=== PATIENT | male | born 1935 | race Caucasian/White ===

== ENCOUNTER 2021-07-23 15:56 | Emergency (ER) | payer MEDICARE, OTHER ==
[~2021-07-23] VITALS: Ht 170.2 cm; Wt 90.9 kg
[~2021-07-23 15:56] MED LIST: METF-658 PO; TAMS0.4C97 PO
--- NOTE | 2021-07-23 18:19 | PHYS DOC ---
Past Medical History Past Medical History: CVA, Diabetes-Type II, Other Additional Past Medical Histor: URINARY RETENTION Past Surgical History: Cholecystectomy Smoking Status: Former Smoker Alcohol Use: None Drug Use: None General Adult EDM: Chief Complaint: PENIS PROBLEM HPI: HPI: Patient is a 86 year old male with history of of DM, CVA, urinary retention who presents with "bleeding down there." Patient states that he sat down in a chair approximately 3 hours ago. He felt a "tear" near his genitals. He noticed bleeding on the chair and continued bleeding in his pants. He is unsure where the bleeding is coming from, because he cannot see it. Denies any direct trauma to the area, did not sit on any sharp objects or anything unusual. Denies having a similar issue in the past. He is supposed to be taking Plavix for his CVA, but has been noncompliant with Plavix for the past week. Review of Systems: Review of Systems: Constitutional: Denies fever or chills. [] Eyes: Denies change in visual acuity. [] HENT: Denies nasal congestion or sore throat. [] Respiratory: Denies cough or shortness of breath. [] Cardiovascular: Denies chest pain or edema. [] GI: Denies abdominal pain, nausea, vomiting, bloody stools or diarrhea. [] : bleeding in genital area, genital itching Musculoskeletal: Denies back pain or joint pain. [] Integument: Denies rash. [] Neurologic: Denies headache, focal weakness or sensory changes. [] Endocrine: Denies polyuria or polydipsia. [] Lymphatic: Denies swollen glands. [] Psychiatric: Denies depression or anxiety. [] Heart Score: C/O Chest Pain: No Allergies: Allergies: Allergies Coded Allergies Type Severity Reaction Last Updated Verified No Known Drug Allergies 03/21/16 No Physical Exam: PE: Constitutional: Well developed, well nourished, no acute distress, non-toxic appearance. [] Cardiovascular:Normal rate Lungs & Thorax: Normal work of breathing Abdomen: soft, non-tender : erythema in the groin bilateraly extending to the scrotum and shaft of the penis. Thick yellow, sebaceous secretions. At the base of the right side of the penis he has small skin tear/irritation, not bleeding, well approximated. The tear area is tender but the remaining genital exam is non-tender. Skin: See above, warm, well perfused extremities. Back: No tenderness, no CVA tenderness. [] Extremities: No tenderness, no edema. [] Neurologic: Alert and oriented X 3, normal motor function, normal sensory function, no focal deficits noted. [] Psychologic: Affect normal, judgement normal, mood normal. [] Current Patient Data: Vital Signs: Vital Signs Date Time Temp Pulse Resp B/P (MAP) Pulse Ox O2 Delivery O2 Flow Rate FiO2 07/23/21 16:13 98.6 85 18 172/84 (113) 96 Room Air 98.6 EKG: EKG: [] Radiology/Procedures: Radiology/Procedures: [] Course & Med Decision Making: Course & Med Decision Making Pertinent Labs and Imaging studies reviewed. (See chart for details) 86-year-old male presents with bleeding in his genital area. Exam reveals tinea cruris and balanitis. No suspicion for Roberto's gangrene/n ecrotizing soft tissue infection or bacterial superinfection. The small skin tear/area of irritation is now hemostatic and does not require repair. We will treat with fluconazole 150 mg p.o. once, clotrimazole/betamethasone cream BID for 10 days. Asked him to follow-up with his PCP 1-2 weeks to ensure that his symptoms are improving. Anselmo Disclaimer: Anselmo Disclaimer: This electronic medical record was generated, in whole or in part, using a voice recognition dictation system. Departure Departure Impression: Primary Impression: Tinea cruris Additional Impression: Balanitis Disposition: HOME / SELF CARE / HOMELESS Condition: STABLE Referrals: SILVA VAZ III, MD (PCP) Schedule a follow up to ensure your symptoms improve in approximately 1-2 weeks. Patient Instructions: Balanitis and Foreskin Hygiene Additional Instructions: You have a fungal infection in your groin. I am prescribing 2 medications: The first one-time dose tablet called fluconazole. The second is a steroid/antifungal cream that I want you to apply twice daily for the next 10 days to the red areas in your groin. Please see the attached document about hygiene measures you can take to prevent recurrence and clear up your current infection. Scripts Clotrimazole/Betamethasone Dip (CLOTRIMAZOLE-BETAMETHASONE CRM) 15 Gm Cream..g. 1 BRANDY TP BID for 10 Days, #30 GM 1 Refill Prov: SHELBY SALINAS MD 07/23/21 Fluconazole (DIFLUCAN) 150 Mg Tablet 1 TAB PO ONCE, #1 TAB 1 Refill Prov: SHELBY SALINAS MD 07/23/21 SHELBY SALINAS MD Jul 23, 2021 18:19
[2021-07-23 18:23] VITALS: BP 161/88
[2021-07-23] MEDS ORDERED: FLUC150T PO (18:33)
[2021-07-23] MEDS ORDERED: CLOT15CR5 TP (18:33)
== END 2021-07-23 19:07 | disposition home or self-care (01) ==
LOC: ER 15:56
DX: B35.6 Tinea cruris (principal); N48.1 Balanitis; E11.9 Type 2 diabetes mellitus without complications; Z86.73 Personal history of transient ischemic attack (TIA), and cerebral infarction without residual deficits; Z87.891 Personal history of nicotine dependence; Z90.49 Acquired absence of other specified parts of digestive tract
CPT/HCPCS: 99283